=== PATIENT | female | born 1945 | race Caucasian/White ===

== ENCOUNTER 2020-03-12 12:18 | Inpatient (IN) | payer OTHER ==
[~2020-03-12] VITALS: Ht 162.6 cm; Wt 124.7 kg
[2020-03-12 13:28] LABS: ABSOLUTE NEUTROPHILS 5.9 thou/uL (1.4-8.2); BASOPHILS 0.2 % (0.0-2.0); EOSINOPHILS 0.7 % (0.0-3.0); HEMATOCRIT 35.7 % (37.0-47.0); LYMPHOCYTES 10.3 % (24.0-44.0); MCH 33.8 pg (26.0-34.0); MCHC 33.7 g/dL (28.0-37.0); MCV 100.3 fL (80.0-100.0); MONOCYTES 9.3 % (1.0-8.0); PLATELET COUNT 175 thou/uL (150-400); POLYS 79.5 % (36.0-66.0); RBC 3.56 mil/uL (4.20-5.00); RDW 14.6 % (10.5-14.5); WBC 7.5 thou/uL (4.0-11.0)
[2020-03-12 13:38] LABS: ANION GAP 10 mmol/L (7-16); BUN 16 mg/dL (7-18); CALCIUM 8.9 mg/dL (8.5-10.1); CHLORIDE 97 mmol/L (98-107); CO2 28 mmol/L (21-32); CREATININE 1.1 mg/dL (0.6-1.0); GLUCOSE 118 mg/dL (74-106); POTASSIUM 4.6 mmol/L (3.5-5.1); SODIUM 135 mmol/L (136-145)
[2020-03-12 13:47] LABS: TROPONIN-I <0.06 ng/mL (<0.06)
[2020-03-12 14:39] LABS: ICTOTEST (BILI CONFIRMATORY) Negative (Negative); URINE BILIRUBIN NEGATIVE (Negative); URINE BLOOD NEGATIVE (Negative); URINE CLARITY CLEAR; URINE COLOR YELLOW; URINE GLUCOSE-RANDOM* NEGATIVE (Negative); URINE KETONES TRACE (Negative); URINE LEUKOCYTES-REFLEX NEGATIVE (Negative); URINE NITRITE-REFLEX NEGATIVE (Negative); URINE PROTEIN (DIPSTICK) NEGATIVE (Negative); URINE SPECIFIC GRAVITY >= 1.030 (1.005-1.035); URINE UROBILINOGEN 0.2 E.U./dl (0.2-1.0)
[2020-03-12 14:46] LABS: AMP/METHAMP Negative (Negative); BARBITURATES Negative (Negative); BENZODIAZEPINES POSITIVE (Negative); COCAINE Negative (Negative); METHADONE Negative (Negative); OPIATES POSITIVE (Negative); PCP Negative (Negative)
[2020-03-12 15:23] VITALS: BP 134/74
[2020-03-12 17:13] VITALS: BP 123/68
[2020-03-12] MEDS ORDERED: ALPRAZOLAM1 MG PO (17:32)
[2020-03-12] MEDS ORDERED: ALENDRONATE SOD70 MG PO (17:32)
[2020-03-12 17:33] VITALS: BP 123/68
[2020-03-12] MEDS ORDERED: NORCO 10-325 T1 EACH PO (17:33)
[2020-03-12 18:15] VITALS: BP 123/71
--- NOTE | 2020-03-12 20:25 | NUR ---
PATIENT ADMITTED FROM ER WITH LEFT ANKLE FRACTURE, ORTHO GLASS SPLINT IN PLACE. PATIENT C/O PAIN WITH LEFT ANKLE, THIS RN GAVE MORPHINE 2 MG IV DURING ADMISSION. ORTHO CONSULT ORDER DR MIRANDA SPOKE WITH THE SON. PATIENT ALERT WITH FORGETFULNESS AND PERIODS OF CONFUSION. ALERT AND ORIENTED X 3. ADMISSON COMPLETED, REPORT GIVEN TO SANJUANA/RN.
[2020-03-12 22:45] VITALS: BP 144/87
--- NOTE | 2020-03-13 03:40 | NUR ---
ASSUMED PT CARE AT 1900.PT DENIED PAIN SO FAR.L ANKLE DRSG C/D/I IN GLASS SPLINT.EDEMA NOTED ON HER R ANKLE.PT NPO AT THIS TIME FOR A POSSIBLE SURGERY IN THE AM.COVID TESTING COMPLETED THIS SHIFT.NO S/S OF ETOH WITHDRAWAL NOTED.FALL PRECAUTIONS IN PLACE.CALL LIGHT WITHIN REACH.
[2020-03-13 04:10] VITALS: BP 139/78
[2020-03-13 07:40] VITALS: BP 149/68
--- NOTE | 2020-03-13 09:00 | EKG ---
[facility] [place] [address] ELECTROCARDIOGRAM REPORT Name: ANDREW MCKEON Room #: 443- ADM IN M.R.#: [id number] Admission: 03/12/20 Attend Phys: Kit Betancourt MD Discharge: Date of : 43 Report #: [id number] THIS REPORT FOR: cc: Eduardo Purvis MD, Michael D. MD Lundgren,Chris Krishnamurthy MD [facility] ~ THIS REPORT FOR: //name// [facility] Test Date: 2020-03-12 Test Time: 13:16:57 Pat Name: ANDREW MCKEON Department: Room: 443 Gender: F Revenue Cycle Manager: ROSITA : 1945 Requested By: Tarik Victor Order Number: [id number] MD: Chris Lr Measurements Intervals [place] Rate: 91 P: 59 NH: 164 QRS: 15 QRSD: 94 T: 27 QT: 347 QTc: 427 Interpretive Statements Sinus rhythm RSR' in V1 or V2, right VCD Nonspecific ST segment abnormality No previous ECG available for comparison Electronically Signed On 03-13-2020 9:00:04 CDT by Chris Lr [email or web address] <ELECTRONICALLY SIGNED> By: Chris Lr MD, [facility] 03/13/2000 1316 1316 Chris Lr MD, [facility] /EPI
--- NOTE | 2020-03-13 12:44 | NUR ---
ASSESSMENT: CM REVIEWED CHART AND MET WITH PATIENT AT THE BEDSIDE. PT IS ALERT AND ORIENTED X4. PT IS HERE FOR L ANKLE FRACTURE. PT IS NWB AT THIS TIME. PT REPORTS SHE LIVES IN A HOME ALONE ( JUST LAST WEEK). PT HAS NO STEPS TO ENTER AND HAS A STAIR LIFT INSIDE. PT REPORTS USING A WALKER FOR AMBULATION AT HOME. PHYSICAL THERAPY SAW PATIENT AND ARE RECOMMENDING SNF AT DISCHARGE. CM DISCUSSED THIS WITH PATIENT AND LITO HER DPOA WHO IS IN THE ROOM. CM PROVIDED THEM A LIST OF SNF IN [facility] WITH [facility]. [facility] THEN [facility] IF THEY COULD NOT ACCEPT. CM REACHED OUT TO SYDNEY HENAO AT [facility] AND SHE REPORTS THEY HAVE BEDS OPEN AND WILL REVIEW IT AND START THE AUTH PROCESS IF THEY CAN MEDICALLY ACCEPT. CM ALSO FAXED PENDING COVID TEST RESULT. CM WILL CONTINUE TO FOLLOW TO ASSIST NEEDED.
--- NOTE | 2020-03-13 13:57 | NUR ---
Assumed care of pt at 0700. Pain controlled with prn pain meds. Worked with physical therapy. Recommended SNF. Call light within reach. Fall precautions in place. Will continue to monitor.
--- NOTE | 2020-03-13 15:20 | NUR ---
ON-GOING ASSESSMENT: SHAWNA RECEIVED A CALL BACK FROM [facility] AND SHE REPORTS AFTER CALLING [facility] SHE FOUND OUT THEIR FACILITY IS OUT OF NETWORK. SHAWNA THEN FAXED REFERRAL TO [facility] PATIENTS SECOND CHOICE FOR SNF AND REQUESTED THEY PLEASE START THE AUTH PROCESS IF THEY CAN ACCEPT. SHAWNA REQUESTED THAT SYDNEY FROM [facility] CONTACT THE BEDSIDE NURSE AT [phone] TO NOTIFY THEM IF THEY RECEIVE AUTH AND IF PATIENT CAN DISCHARGE. CONTACT FOR SYDNEY HAWKINS AT [facility] IS: [phone]. [facility] NUMBER FOR REPORT IS:[phone]. PLEASE FAX D/C ORDERS AND SUMMARY IF [facility] STATES THEY HAVE INSURANCE AUTH TO FAX:[phone]. NOTIFY PATIENTS REY/LITO [phone].
[2020-03-13 16:30] VITALS: BP 133/77
[2020-03-13 20:05] VITALS: BP 119/78
--- NOTE | 2020-03-14 01:27 | NUR ---
ASSUMED PT CARE AT 1900.PT WAS OBSERVED LYING IN BED WITH HER EYES CLOSED.PT STATED THAT SHE HAS NOT BEEN RECEIVING HER XANAX SINCE ADMIT,SERVICE DESK DIRECTOR ON DUTY NOTIFIED,ORDER RESTARTED.PT SLEEPING AT THIS TIME.FALL PRECAUTIONS IN PLACE,CALL LIGHT WITHIN REACH.
[2020-03-14 05:21] VITALS: BP 110/74
[2020-03-14 08:00] VITALS: BP 152/84
[2020-03-14 16:09] VITALS: BP 140/77
--- NOTE | 2020-03-14 16:40 | NUR ---
Assumed care of pt at 0700. Pt a&ox4. Pain controlled with prn pain meds. Dressing c/d/i. Awaiting ins auth for discharge to rehab facility. Psych consulted. Call light within reach. Will continue to monitor.
[2020-03-14 19:19] VITALS: BP 101/51
--- NOTE | 2020-03-15 00:08 | NUR ---
ASSUMED PT CARE AT 1900.PT C/O PAIN ON HER L ANKLE,MANAGED WITH PRN MED.ANKLE ELEVATED WITH A PILLOW PER PT'S REQUEST.NWB TO HER L FOOT.PT ABLE TO MAKE HER NEEDS KNOWN.FALL PRECAUTIONS IN PLACE,CALL LIGHT WITHIN REACH.
[2020-03-15 05:00] VITALS: BP 141/77
[2020-03-15 07:20] VITALS: BP 140/81
[2020-03-15 07:42] VITALS: BP 140/81
--- NOTE | 2020-03-15 11:35 | NUR ---
ASSUMED CARE OF PATIENT AT SHIFT CHANGE. ASSESSMENT CHARTED. PRN MEDICATION ADMINISTERED PER ORDER FOR PAIN. PATIENT APPEARS ALERT AND ORIENTED. IV ON R AC WAS DISCONTINUED AND A NEW ONE WAS PLACED ON L FA. PATIENT WORKED WITH PT TODAY AND TOLERATED POORLY UP TO CHAIR. CONTINUES TO C/O OF PAIN. THIS NURSE EDUCATED PATIENT ON IMPORTANCE OF WOLFF BEING OUT. TOLERATES DIET WELL. PLAN IS TO GO TO A REHAB AFTER INSURANCE AUTORIZATION. FALL PRECAUTIONS IN PLACE. WILL CONTINUE TO MONITOR
[2020-03-15 16:25] VITALS: BP 135/75
[2020-03-15 19:06] VITALS: BP 142/70
--- NOTE | 2020-03-16 01:17 | NUR ---
PT TRANSFERRING FROM CHAIR TO BED WITH GAIT BELT-WALKER AND MAX ASIST X2 AND IS TOLERATING FAIR. LORTAB PROVIDING PAIN RELIEF. RESTING COMFORTABLY. NO NEEDS VOICED. CALL LIGHT WITHIN REACH. FREQUENT OBSERVATION.
[2020-03-16 07:15] VITALS: BP 136/78
[2020-03-16 16:17] VITALS: BP 125/71
--- NOTE | 2020-03-16 19:55 | NUR ---
ASSUMED CARE OF THE PATIENT AT 0715, PATIENT ALERT AND ORIENTED X 4. PATIENT CONTINUES TO C/O PAIN, THIS RN NOTIFIED DR BETTS, NEW ORDER FOR INCREASE OF MORPHINE FROM 2MG TO 4 MG IV. ALTERNATING HYDROCODONE AND MORPHINE IV TO GET PLAN LEVEL DOWN. PATIENT HAS LEFT FOREARM IV IN PLACE. SPLINT WAS TAKEN OFF BY THE NIGHT NURSE DESTINI/RN. DESTINI/PT CAME TO WORK WITH THE PATIENT BUT DIDN'T DUE NO SPLINT OT LEFT ANKLE, REDNESS AND SWELLING NOTED, ICE PACKS X 2 APPLIED THRU OUT THE SHIFT. [facility] WOLFF CATHETER IN PLACE. WILL CONTINUE TO MONITOR.
[2020-03-16 20:30] VITALS: BP 139/83
[2020-03-17 05:12] VITALS: BP 129/66
--- NOTE | 2020-03-17 06:04 | NUR ---
PT AOX4. PT REPORTS 6/10-1010 PAIN IN LEFT ANKLE AND FOOT. PT RECEIVING PRN PO NORCO Q4HR AND PRN IV MORPHINE Q4HR. PT DENIES SOB, REMAINS ON ROOM AIR. PT CONTINUES TO REST IN BED THROUGHOUT SHIFT, FREQUENT REPOSITIONING ENCOURAGED. PT REFUSING FREQUENT REPOSITIONING DUE TO INCREASED PAIN IN LLE WITH TACTILE STIMULATION AND MOVEMENT. BLE REMAIN ELEVATED WITH PILLOWS FOR SUPPORT. PT NOTED TO HAVE +1 EDEMA TO LEFT FOOT AND ANKLE, CAPILLARY REFILL AT 3SEC. SOFT WRAP AND POSTERIOR CASTING REAPPLIED, PT REFUSING LATERAL CASTING DUE TO PAIN, LLE WRAPPED WITH ESTEFANIA WRAP. PT REPORTS RECENT LOSS OF . PT ALSO REPORTS INCREASED SADNESS, DEPRESSION, AND ANXIETY DUE TO RECENT LOSS. PT NOTED TO HAVE BRIGHTENED AFFECT WHEN EMOTIONAL SUPPORT AND THERAPEUTIC COMMUNICATION OFFERED. PT HAS PRN PO XANAX Q6HR AVAILABLE. ENCOURAGED PT TO NOTIFY STAFF FOR ALL NEEDS. CALL LIGHT WITHIN REACH, BED ALARM ON, BED IN LOWEST POSITION, FREQUENT MONITORING WILL CONTINUE.
[2020-03-17 08:37] VITALS: BP 111/57
--- NOTE | 2020-03-17 10:17 | NUR ---
ON-GOING ASSESSMENT: CM FAXED NEGATIVE COVID TEST ALONG WITH PROGRESS NOTE FROM PHYSICIAN AND UPDATED PT NOTE TO [facility]. CM SPOKE WITH SYDNEY WHO REPORTS THEY ARE STILL AWAITING ON INSURANCE AUTH AT THIS TIME.
--- NOTE | 2020-03-17 12:48 | NUR ---
I have reviewed the student's documentation.
--- NOTE | 2020-03-17 14:02 | NUR ---
Assumed care of pt at 0700. Pt a&ox4. Pain controlled with prn pain meds. Dressing c/d/i. Arias catheter in place. Ice pack in place. Pt refuses turns. Up to chair with physical therapy. Awaiting ins auth for rehab facility. Call light within reach. Will continue to monitor.
[2020-03-17 16:45] VITALS: BP 151/69
[2020-03-17 19:31] VITALS: BP 142/61
[2020-03-18 03:22] VITALS: BP 146/68
--- NOTE | 2020-03-18 07:07 | NUR ---
PT AOX4. PT REPORTS 7/10-1010 PAIN IN LEFT ANKLE. PT RECEIVING PRN PO NORCO Q4HR WITH PRN IV MORPHINE Q4HR AVAILABLE. PT DENIES SOB, REMAINS ON ROOM AIR. PT TOLERATING PO INTAKE OF FLUIDS AND REGULAR DIET. PT CONTINUES TO REST IN BED, FREQUENT REPOSITIONING ENCOURAGED, PT NOTED TO SHIFT INDEPENDENTLY, OBSERVED SITTING ON SIDE OF THE BED WITHOUT ASSIST. WHILE SITTING ON SIDE OF BED, PT REPORTS THROBBING PAIN IN LEFT ANKLE, PRN IV MORPHINE GIVEN. PROVIDED EDUCATION TO PT IN REGARDS TO MAINTAINING SPLINT TO PROMOTE HEALING, PT NOTED TO BE RELUCTANT TO KEEP SPLINT WITH ACEWRAP IN PLACE. PT ENCOURAGED TO NOTIFY STAFF FOR ALL NEEDS. CALL LIGHT WITHIN REACH, BED ALARM ON, BED IN LOWEST POSITION, FREQUENT MONITORING WILL CONTINUE.
[2020-03-18 07:25] VITALS: BP 150/66
--- NOTE | 2020-03-18 11:02 | NUR ---
Assumed care of pt at 0700. Pt a&ox4. Pain controlled with prn pain meds. Arias catheter in place. Awaiting ins auth. Call light within reach. Fall precautions in place. Will continue to monitor.
--- NOTE | 2020-03-18 13:09 | NUR ---
ON-GOING ASSESSMENT: CM FAXED UPDATED PT/OT AND PROGRESS NOTES TO [facility] AND STILL AWAITING INSURANCE AUTH. CM SPOKE WITH [facility] WHO REPORTS THEY STILL HAVE NOT HEARD BACK AT THIS TIME. DISCHARGE TO [facility] PENDING INSURANCE AUTH.
[2020-03-18 16:20] VITALS: BP 131/67
[2020-03-18] MEDS ORDERED: DALMANE15 MG PO (16:51)
[2020-03-18] MEDS ORDERED: ALPRAZOLAM 0.50.5 M1 PO (16:51)
[2020-03-18] MEDS ORDERED: NORCO 10-325 T1 EACH PO (16:51)
[2020-03-18] MEDS ORDERED: MIRALAX17 GM PO (16:51)
[2020-03-18] MEDS ORDERED: FLONASE 0.05%50 MCG NASAL (16:51)
--- NOTE | 2020-03-18 17:16 | NUR ---
FAXED DC ORDERS/SUMMARY TO [facility] RECEIVED CONFIRMATION AND LEFT MSG WITH ROSE IN ADM AT FACILITY.
--- NOTE | 2020-03-20 12:23 | HC ---
[facility] [place] [address] CONSULTATION Name: ANDREW MCKEON Room #: 443-P [facility] IN M.R.#: [id number] Admission: 03/12/20 Attend Phys: Kit Betancourt MD Discharge: 03/18/20 Date of : 43 Report #: [id number] THIS REPORT FOR: cc: Eduardo Purvis MD, Michael D. MD [facility] ~ CC: Andrew Purvis DATE OF SERVICE: 03/13/2020 REASON FOR CONSULTATION: Left ankle fracture. HISTORY OF PRESENT ILLNESS: The patient is a 75-year-old female who fell at home sustaining an injury to her left ankle. She reports being found by her son. Apparently, there is a question regarding a suicide attempt per the son. She apparently was getting out of bed and got her foot caught. She apparently has a large alcohol intake. Please see the ER note. Reports left ankle pain. REVIEW OF SYSTEMS: MUSCULOSKELETAL: Reports feeling like she has a tailbone fracture from a different injury and denies any other extremity injuries. NEUROLOGIC: Denies numbness or tingling. PAST MEDICAL HISTORY: Significant for anxiety. 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 ALLERGIES: No known drug allergies. MEDICATIONS: The patient's home medications upon admission include alprazolam, alendronate, and hydrocodone. SOCIAL HISTORY: She just recently lost her approximately 9 days ago. Apparently ambulates with a walker. Drinks alcohol daily. Denies smoking cigarettes. She is a Judaism. LABORATORY DATA: Done on the date of admission show white blood cell count 7.5, hemoglobin 12, hematocrit 35.7, platelet count 175. Chemistry shows a low sodium at 135, low chloride at 97, creatinine is slightly elevated at 1.1. Toxicology is positive for opiates and benzodiazepine and consistent with her history of hydrocodone and alprazolam use. Coronavirus PCR is pending. PHYSICAL EXAMINATION: [address] [address] CONSULTATION Name: ANDREW MCKEON Room #: 443-P [facility] IN M.R.#: [id number] Admission: 03/12/20 Attend Phys: Kit Betancourt MD Discharge: 03/18/20 Date of : 43 Report #: [id number] GENERAL: The patient is awake, alert and oriented. She interacts appropriately. She is well-developed, well-nourished, mildly obese female in moderate distress secondary to pain. She asked for pain medication. VITAL SIGNS: Most recent vital signs show temperature of 37.3, heart rate 86, respiratory rate 12, blood pressure 139/78, pulse oximetry is 96% on room air. EXTREMITIES: Examination of her bilateral upper extremities, the skin is clean, dry and intact. She has brisk capillary refill. She has grossly normal strength and stability. She is able to make a fist, full extension. She moves her shoulders, elbows, forearms, wrists and hands without pain. There is no tenderness to palpation. Right lower extremity examination: Sensation is intact to light touch throughout. She has grossly normal strength and stability. She wiggles her toes. There is no pain with range of motion of the right knee, ankle, hip or foot. Left lower extremity exam, she has a posterior and sugar-tong splint that has bulky Pro padding around the malleoli. She has brisk capillary refill. Sensation is intact to light touch throughout. She wiggles her toes. Grossly normal strength and stability. She has tenderness with attempted palpation of the ankle. No tenderness to the knee. No pain with range of motion of the left knee or hip. RADIOGRAPHS: AP, mortise and lateral of the ankle shows an essentially nondisplaced trimalleolar ankle fracture with no widening of the syndesmosis, noted is some abnormal sclerosis and contouring of the tibiotalar joint, most likely related to arthrosis. IMPRESSION AND PLAN: A 75-year-old female with a nondisplaced bimalleolar ankle fracture. I discussed diagnosis as well as treatment options. At this point, recommend nonweightbearing, continue in her splint. She should see either my partner, Dr. Jan Palencia or her usual orthopedic surgeon next week for close radiographic monitoring. We discussed the fracture can displace and she may need surgical intervention. If Social Work has not been consulted, we will ask Social Work to see the patient. She has some other issues including probable alcohol abuse, potential suicidal ideation and possible lack of social support. She does have a son here in town who may be able to help out with her, but we will allow the social workers and family to determine what interventions are needed. I will sign off. Please call my [facility] partner electronics detail draftsperson this weekend if anything further is needed. <ELECTRONICALLY SIGNED> By: Sarah Hudson MD 03/20/20 1223 [id number] [id number] Sarah Hudson MD /nt
== END 2020-03-18 18:32 | DRG 563 ==
LOC: ER 12:18 → EROBS 16:39 → 4S 16:39
PROVIDERS: Emergency Medicine; ADMIT Internal Medicine; ATTEND Internal Medicine
PROC: 2W3RX1Z Immobilization of Left Lower Leg using Splint (ICD-10-PCS; principal; 2020-03-12)
DX: S82.855A Nondisplaced trimalleolar fracture of left lower leg, initial encounter for closed fracture (principal); Z68.42 Body mass index [BMI] 45.0-49.9, adult; M19.90 Unspecified osteoarthritis, unspecified site; F10.10 Alcohol abuse, uncomplicated; M62.84 Sarcopenia; Z20.828 Contact with and (suspected) exposure to other viral communicable diseases; E66.9 Obesity, unspecified; E78.5 Hyperlipidemia, unspecified; I10 Essential (primary) hypertension; Z96.643 Presence of artificial hip joint, bilateral; Z96.651 Presence of right artificial knee joint; Z60.2 Problems related to living alone; M81.0 Age-related osteoporosis without current pathological fracture; K59.00 Constipation, unspecified; G47.00 Insomnia, unspecified; F41.9 Anxiety disorder, unspecified; W18.39XA Other fall on same level, initial encounter; Y93.89 Activity, other specified; Y92.098 Other place in other non-institutional residence as the place of occurrence of the external cause; Z47.89 Encounter for other orthopedic aftercare; Z79.899 Other long term (current) drug therapy; Y99.8 Other external cause status
CPT/HCPCS: 10195

== ENCOUNTER → 2020-04-03 | Outpatient (CLI) | payer OTHER ==
[~2020-04-03] VITALS: Ht 152.4 cm; Wt 113.4 kg
[~2020-04-03] MED LIST: ALENDRONATE SOD70 MG PO; ALPRAZOLAM 0.50.5 M1 PO; ALPRAZOLAM1 MG PO; DALMANE15 MG PO; FLONASE 0.05%50 MCG NARES; FLONASE 0.05%50 MCG NASAL; MIRALAX119 GM PO; MIRALAX17 GM PO; NAPROXEN SODIU220 M2 PO; NORCO 10-325 T1 EACH PO; ONDANSETRON HCL4 M2 PO; TRAMADOL 50 MG50 MG PO; ZESTRIL5 MG PO
== END ==
LOC: PRE 07:42 → PAC 09:00 → PRE 12:59 → EDSTATUS 15:13 → OR 16:14 → PRE 16:15
PROVIDERS: ATTEND Orthopaedic Surgery Foot and Ankle Surgery
DX: Z20.828 Contact with and (suspected) exposure to other viral communicable diseases (principal)